=== PATIENT | female | born 1995 ===

== ENCOUNTER 2024-12-11 18:28 | Emergency (ER) | payer MEDICAID, OTHER, SELFPAY ==
--- NOTE | ~2024-12-11 | XR_ITS ---
CLINICAL HISTORY: pain 3 views thoracic spine Comparison: None Findings: Mild rightward curvature thoracic spine by radiographs. No acute compression deformity of the imaged thoracic vertebrae. No significant listhesis of the imaged thoracic vertebrae. Cervicothoracic junction and upper thoracic vertebrae obscured. Mild height loss of the C4 and C5 in the [id number] are age indeterminate by radiographs and likely old/chronic with mild reversal of the cervical lordosis. Narrowing opacities present. Mild bibasilar atelectasis. IMPRESSION: No acute compression fracture of the imaged thoracic vertebrae. Consider CT and/or MRI, if clinically indicated. This document has been electronically signed by: Aubrey Medeiros MD on 12/11/2024 19:54:59
--- NOTE | ~2024-12-11 | XR_ITS ---
CLINICAL HISTORY: pain 3 views lumbar spine Comparison: None Findings: Five lumbar type vertebrae with diminutive and asymmetric 12th ribs for the purposes of this dictation only. Normal heights of the lumbar vertebrae. No significant listhesis of the lumbar vertebrae. Lumbosacral junction is partly obscured. L4 and L5 pars are partly obscured without definite lysis. Mild lower facet arthropathy suggested. Posterior elements are otherwise unremarkable for radiographs. Mild leftward curvature of the imaged lumbar spine. Metal opacities are likely superficial on the lateral image. [id number] stool burden noted. Sacrum and SI joints are obscured. IMPRESSION: 1. No acute compression fracture of the lumbar vertebrae. 2. Lower lumbar facet arthropathy. 3. 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 This document has been electronically signed by: Aubrey Medeiros MD on 12/11/2024 19:56:53
[2024-12-11 18:34] VITALS: BP 120/90; PULSE 69; RESP 18; TEMP 36.1; O2SAT 100; BMI 23.5
--- NOTE | 2024-12-11 18:38 | ED_ITS ---
HPI - General Adult General Chief complaint: Back Pain/Injury Stated complaint: back pain Time Seen by Provider: 12/11/24 20:55 Source: patient Limitations: language barrier History of Present Illness ED Provider: Coby Nicole PA-C HPI narrative: 29-year-old female with a self report of mild scoliosis presents with back pain since July. No preceding trauma, the patient states she cares for her nephew, he is heavy, she often needs to lift him. This is the only repetitive activity that she performs. Pain is diffuse from mid to lower back. No radiation down either lower extremity, no urinary retention or bowel incontinence. The patient just obtained primary care, she is pending an appointment. Related Data Previous Rx's ?Medication ?Instructions ?Recorded ibuprofen 600 mg tablet 600 mg PO Q6H PRN pain #20 tabs 12/11/24 methocarbamol 750 mg tablet 750 mg PO BEDTIME PRN pain #7 tabs 12/11/24 methylprednisolone 4 mg tablets in 4 mg PO QAM #21 ea 12/11/24 a dose pack (Medrol (Nikunj)) Allergies Allergy/AdvReac Type Severity Reaction Status Date / Time No Known Allergies Allergy Verified 12/11/24 18:38 Review of Systems Review of Systems: Yes all other systems are reviewed and are negative Constitutional: Constitutional: Denies fatigue and Denies fever(s) Cardiovascular: Cardiovascular: Denies chest pain and Denies dyspnea Respiratory: Respiratory: Denies cough and Denies dyspnea Musculoskeletal: Musculoskeletal: Reports back pain, Denies muscle weakness, Denies radiating pain into limb and Denies tingling Neurologic: Denies tingling Endocrine: Endocrine: Denies fatigue [facility] Past Medical History Attestation statement: The following information was validated with the patient. Social History Social History Smoked in Last 30 Days: No Use of substances other than those prescribed or required for medical reasons: No Advance Directives: No Advance Directives Information Provided: No Physical Exam ED Vital Signs: Vital Signs - 24 hr 12/11/24 18:34 12/11/24 21:51 12/11/24 22:29 Temperature 97 F 98.4 F 98.4 F Pulse Rate 69 69 69 Respiratory Rate 18 18 18 Blood Pressure 120/90 H 138/77 138/77 Pulse Oximetry 100 100 100 Oxygen Delivery Method Room Air Room Air BMI result Body Mass Index 23.5 Const Other: Alert well-appearing Orientation/consciousness: patient oriented x3 Resp Effort & Inspection: normal respiratory effort Cardio Other: Normal peripheral perfusion Skin Other: Warm dry no rash Neuro General: patient oriented x3, gait normal, no focal motor deficits and CN's II- XI intact bilaterally Psych Other: Cooperative Course Course Course Narrative: RME, this is a rapid medical exam performed by Daren Eduardo please refer to primary provider for complete H&P- 29 year old female presents for evaluation of mid back pain. She has had pain since July, 4 months ago. Denies any specific injury, Her pain is worse with moving or walking. Denies any GIU or symptoms. Plan for x-ray Medications Administered Discontinued Medications Generic Name Dose Route Start Last Admin Trade Name Freq PRN Reason Stop Dose Admin Ketorolac Tromethamine 15 mg 12/11/24 21:43 12/11/24 21:50 Ketorolac Tromethamine 15 Mg/Ml Vial IM 12/11/24 21:44 15 mg ONCE ONE Administration Methocarbamol 750 mg 12/11/24 21:43 12/11/24 21:50 Methocarbamol 750 Mg Tablet PO 12/11/24 21:44 750 mg ONCE ONE Administration Medical Decision Making Medical Decision Making [facility] Narrative: 29-year-old female with a self report of mild scoliosis presents with back pain since July. No preceding trauma, the patient states she cares for her nephew, he is heavy, she often needs to lift him. This is the only repetitive activity that she performs. Pain is diffuse from mid to lower back. No radiation down either lower extremity, no urinary retention or bowel incontinence. The patient just obtained primary care, she is pending an appointment. Problem: Scoliosis History: Per patient I have considered the following differential diagnoses: Musculoskeletal strain, progression of scoliosis, arthritis, compression fracture, cauda equina, lumbar radiculopathy Plan: Patient here with chronic back pain, she has had it since July. She has no red flag signs symptoms concerning for cord compression. Imaging of the thoracic and lumbar spine obtained from triage, no acute abnormality, she does have arthritic changes. I have discussed with the patient that she requires an orthopedist who deals with spinal conditions. She is aware that she needs to have her primary care place a referral for her. I have independently reviewed the following tests: Labs: Not X-ray thoracic spine:Findings: Mild rightward curvature thoracic spine by radiographs. No acute compression deformity of the imaged thoracic vertebrae. No significant listhesis of the imaged thoracic vertebrae. Cervicothoracic junction and upper thoracic vertebrae obscured. Mild height loss of the C4 and C5 in the [id number] are age indeterminate by radiographs and likely old/chronic with mild reversal of the cervical lordosis. Narrowing opacities present. Mild bibasilar atelectasis. IMPRESSION: No acute compression fracture of the imaged thoracic vertebrae. Consider CT and/or MRI, if clinically indicated. X-ray lumbar spine: indings: Five lumbar type vertebrae with diminutive and asymmetric 12th ribs for the purposes of this dictation only. Normal heights of the lumbar vertebrae. No significant listhesis of the lumbar vertebrae. Lumbosacral junction is partly obscured. L4 and L5 pars are partly obscured without definite lysis. Mild lower facet arthropathy suggested. Posterior elements are otherwise unremarkable for radiographs. Mild leftward curvature of the imaged lumbar spine. Metal opacities are likely superficial on the lateral image. [id number] stool burden noted. Sacrum and SI joints are obscured. IMPRESSION: 1. No acute compression fracture of the lumbar vertebrae. 2. Lower lumbar facet arthropathy. 3. 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 Lab Data Labs: Lab Results 12/11/24 12/11/24 Range/Units 19:03 20:47 Beta HCG, Quant < 2 mIU/mL Urine Color Yellow Urine Appearance Clear Urine pH 7.0 (5.0-9.0) Ur Specific [place] 1.015 (1.005-1.025) Urine Protein Negative (Neg-Trace) mg/dL Urine Glucose (UA) Negative (Negative) mg/dL Urine Ketones Negative (Negative) mg/dL Urine Blood Negative (Negative) Urine Nitrite Negative (Negative) Ur Leukocyte Esterase Negative (Negative) Urine RBC 0-2 (0-2) /HPF Urine WBC 0-5 (0-5) /HPF Ur Squamous Epith Cells 0-2 (0-2) /HPF Urine Bacteria None Seen (None Seen) Hyaline Casts 0-2 (0-2) /LPF Discharge Plan Discharge Clinical Impression: Scoliosis, Chronic back pain Patient Disposition: Home, Self-Care Instructions: Osteoarthritis (ED), Chronic Back Pain (DC) Additional Instructions: The x-rays revealed that you are developing arthritis in the back. See home care instructions. Take the ibuprofen as directed, take it with food, this is an anti-inflammatory. Take the Medrol Dosepak as directed, this is a 2nd anti- inflammatory take it in the morning. Use the methocarbamol as needed for further pain, this is a muscle relaxant, I would reserve its use for nighttime before bed. It will cause drowsiness, you can not drive or operate machinery while taking the medication. Be sure to schedule an appointment with your primary care provider, they can refer you to a orthopedic life skills specialist to manage your scoliosis. Prescriptions: New ibuprofen 600 mg tablet 600 mg PO Q6H PRN (Reason: pain) Qty: 20 0RF methylprednisolone [Medrol (Nikunj)] 4 mg tablets,dose pack 4 mg PO QAM Qty: 21 0RF Rx Instructions: Use per package instructions methocarbamol 750 mg tablet 750 mg PO BEDTIME PRN (Reason: pain) Qty: 7 0RF Interventions: ED Discharge Assessment Last Done: 12/11/24 22:29 Discharge Date/Time: 12/11/24 22:30 Print Language: Greek
[2024-12-11 19:26] LABS: HCG Quantitative < 2 mIU/mL
--- NOTE | 2024-12-11 19:44 | PC.NURSE ---
Pt a&ox4, no signs of distress. Pt ambulates with a steady gait. Pt reports 04/27 mid back pain onset July 2024, denies injury or trauma Pt reports NKDA Plan of care ongoing.
[2024-12-11 20:54] LABS: Appearance Urine Clear; Color Urine Yellow; Glucose Urine UA Negative (Negative); Leukocyte Esterase Urine Negative (Negative); Nitrite Urine Negative (Negative); Specific Gravity - Urine 1.015 (1.005-1.025); Urine Blood Negative (Negative); Urine Ketones Negative (Negative); Urine Protein Negative (Neg-Trace)
[2024-12-11 21:06] LABS: Bacteria Urine None Seen (None Seen); Hyaline Casts Urine 0-2 /LPF (0-2); RBC Urine 0-2 /HPF (0-2); Squamous Epithelial Cell Urine 0-2 /HPF (0-2); WBC Urine 0-5 /HPF (0-5)
[2024-12-11] MEDS: Ketorolac Tromethamine 15 MG/ML VIAL IM (21:50)
[2024-12-11] MEDS: methocarbamoL 750 MG TABLET PO (21:50)
[2024-12-11 21:51] VITALS: BP 138/77; PULSE 69; RESP 18; TEMP 36.9; O2SAT 100
--- NOTE | 2024-12-11 21:54 | PC.NURSE ---
Pt medicated per [facility] Plan of care ongoing
[2024-12-11 22:29] VITALS: BP 138/77; PULSE 69; RESP 18; TEMP 36.9; O2SAT 100
== END 2024-12-11 22:30 | disposition home or self-care (01) ==
PROVIDERS: Physician Assistant; Emergency Provider Emergency Medicine
DX: M41.9 Scoliosis, unspecified (principal); G89.29 Other chronic pain; M54.50 Low back pain, unspecified; M54.6 Pain in thoracic spine
CPT/HCPCS: 36415; 72070; 72100; 81001; 84702; 96372; 99284; J1885

== ENCOUNTER → 2024-12-11 18:39 | Outpatient (BNV) | payer MEDICAID, SELFPAY | PROVIDERS: Visit Provider Radiology Neuroradiology | DX: M46.96 Unspecified inflammatory spondylopathy, lumbar region (principal); J98.11 Atelectasis | CPT/HCPCS: 72070; 72100 ==

== ENCOUNTER 2025-03-16 11:25 | Outpatient (REF) | payer MEDICAID, OTHER, SELFPAY ==
[2025-03-16 13:32] LABS: MANUAL DIFF FLAG NO
[2025-03-16 13:35] LABS: Hematocrit 40.5 % (37.0-47.0); Hemoglobin 13.5 g/dl (12.0-16.0); Imm Gran Abs Auto 0.02 X10*3/uL (0.00-0.03); Imm Gran Pct Auto 0.3 % (0.0-0.4); Lymphocytes Absolute Auto 1.9 X10*3/uL (1.2-4.9); Mean Corpuscular HGB Conc 33.3 g/dl (31.0-35.0); Mean Corpuscular Hemoglobin 29.3 pg (27.0-33.0); Mean Corpuscular Volume 87.9 fL (80.0-98.0); NRBC Abs Auto 0.000 X10*3/uL (0.0-0.012); NRBC Pct Auto 0.0 /100WBC (0.0-0.2); Platelet Count 274 X10*3/uL (160-400); Red Blood Count 4.61 X10*6/uL (4.20-5.50); White Blood Count 5.9 X10*3/uL (4.8-10.8)
[2025-03-16 14:11] LABS: Alanine Aminotransferase 65 U/L (0-31); Albumin Level 4.6 g/dL (3.5-5.0); Alkaline Phosphatase 75 U/L (39-117); Anion Gap 11 (12-20); Aspartate Amino Transferase 38 U/L (5-31); Blood Urea Nitrogen 11 mg/dL (9-16); Calcium 9.1 mg/dL (8.4-10.2); Carbon Dioxide 27 mmol/L (22-29); Chloride 107 mmol/L (96-108); Cholesterol 167 mg/dL (<200); Estimated Glomerular Filt Rate > 60; HDL Cholesterol 44 mg/dL (>40); Potassium 3.7 mmol/L (3.3-5.1); Sodium 141 mmol/L (135-145); Total Protein 7.5 g/dL (6.5-8.0); Triglycerides 115 mg/dL (<150)
[2025-03-17 04:07] LABS: HIV Num 1 0.06 S/CO (0.00-0.99); ~HepC Num1 0.07 S/CO (0.00-0.79); ~Hepatitis C Antibody Nonreactive (Nonreactive)
== END 2025-03-16 11:26 | disposition home or self-care (01) ==
LOC: HO.HHCL 11:25
PROVIDERS: PCP General Practice; Visit Provider General Practice
DX: Z11.3 Encounter for screening for infections with a predominantly sexual mode of transmission (principal); Z11.4 Encounter for screening for human immunodeficiency virus [HIV]; Z11.59 Encounter for screening for other viral diseases; E66.3 Overweight
CPT/HCPCS: 36415; 80053; 80061; 85025; 86592; 86803; 87389